=== PATIENT | male | born 1985 | race Caucasian/White ===

== ENCOUNTER → 2016-04-05 | Outpatient (CLI) | payer BC, OTHER ==
[~2016-04-05] MED LIST: CMD6; LANS15CA24 OR; LVNIS150 SQ; MEDLIST; PARO1TAB27 PO; PARO30TA3 PO; RANI150T3 PO; WARF10TA4 PO; WARF6TAB5 PO
== END | disposition home or self-care (01) ==
LOC: C.RDSM 12:00
PROVIDERS: ATTEND Orthopaedic Surgery Sports Medicine
DX: M25.522 Pain in left elbow (principal)

== ENCOUNTER 2016-10-02 10:34 | Emergency (ER) | payer BC ==
[~2016-10-02] VITALS: Ht 177.8 cm; Wt 107.5 kg
[~2016-10-02 10:34] MED LIST changes: -CMD6; -LVNIS150 SQ; -PARO1TAB27 PO; -PARO30TA3 PO; -RANI150T3 PO; -WARF10TA4 PO; -WARF6TAB5 PO
[2016-10-02 10:41] VITALS: TEMP 36.6; Ht 177.8 cm; Wt 107.5 kg
[2016-10-02] MEDS ORDERED: WARF10TA4 PO (10:59)
[2016-10-02] MEDS ORDERED: CMD6 (10:59)
[2016-10-02] MEDS ORDERED: PARO1TAB27 PO (10:59)
[2016-10-02] MEDS ORDERED: RANI150T3 PO (10:59)
[2016-10-02 11:09] VITALS: O2SAT 98
[2016-10-02] MEDS ORDERED: SODIUM CHLORIDE 0.9% 1000ML 1,000 ML IV STA (11:24)
--- NOTE | 2016-10-02 11:34 | EMERGENCY ROOM VISIT NOTE ---
History First contact with patient: 11:05 Chief Complaint: SHORTNESS OF BREATH Stated Complaint: SOB, CHEST PAIN Nursing Triage Summary: Pt c/o SOB that began approx 0800 and around 0900 got left lower chest pain. "I got this hot flushy feeling". Pt states pain is just discomfort at rest, increases to 7/10 with inhalation. History of Present Illness The patient is a 31 year old male who presents to the Emergency Room with complaints of shortness of breath and left-sided chest pain that started abruptly this morning around 8 AM. He describes the shortness of breath as "feeling like I can't catch my breath," and states the chest pain is sharp, worse with taking a deep breath, 7/10. He states this feels similar to previous times when he has had a PE. He has not taken anything for the pain. Patient was seen by his PCP today, who sent him to the ED for further evaluation. 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 He states his last PE was in 2012. He denies fevers or chills, dizziness, syncope, headache, nausea or vomiting, hemoptysis, abdominal pain, changes in stool, urinary complaints, or rash. Review of Systems A complete 10 point review of systems was reviewed with the patient with pertinent positives and negatives as per history of present illness. All else were negative. Social History Smoking Status: Former Smoker Current/Historical Medications Scheduled Enoxaparin (Lovenox), 150 MG SQ joleen Ranitidine Hcl (Zantac), 1 TAB PO BID Warfarin Sod (Jantoven), 9 MG PO 3XWK Miscellaneous Medications Paroxetine (Paxil), 30 MG PO Warfarin Sod (Coumadin) Physical Exam Vital Signs Date Time Temp Pulse Resp B/P (MAP) Pulse Ox O2 Delivery O2 Flow Rate FiO2 10/02/16 16:04 61 18 117/70 97 10/02/16 15:01 66 16 126/73 99 Room Air 10/02/16 13:34 64 10/02/16 13:33 63 12 124/75 98 Room Air 10/02/16 11:51 66 16 148/94 95 Room Air 10/02/16 11:12 66 10/02/16 11:09 98 Room Air 10/02/16 10:41 98 Room Air 10/02/16 10:41 36.6 57 16 127/82 97 Room Air Physical Exam CONSTITUTIONAL: No acute distress. Well appearing and well nourished. Alert and oriented X 4 with normal affect. HEENT: Normocephalic, atraumatic. Pupils equal, round and reactive to light, EOMI. TMs normal. Pharynx normal. Moist mucous membranes NECK: Supple, full active range of motion without discomfort. RESPIRATORY: Clear to auscultation bilaterally with no wheezing, crackles, rhonchi or stridor. Equal expansion bilaterally. CARDIOVASCULAR: Regular rate and rhythm with no murmurs, rubs or gallops. Normal peripheral perfusion. No edema. CHEST WALL: There is no tenderness to palpation of the chest wall. No ecchymosis or abrasions. No crepitus. GASTROINTESTINAL: Soft, nontender, nondistended. Bowel sounds present in all quadrants. MUSCULOSKELETAL: Full range of motion of all joints without discomfort. Mild tenderness in the right posterior calf. No swelling or erythema noted. INTEGUMENTARY: No rash or other significant dermatologic conditions noted. NEUROLOGIC: Cranial nerves II-XII grossly intact. No focal neurologic deficits noted. Medical Decision & Procedures ER Provider Diagnostic Interpretation: CT ANGIOGRAM OF THE CHEST CLINICAL HISTORY: Dyspnea. COMPARISON STUDY: Chest x-ray and chest CT dated 05/31/2009. TECHNIQUE: Following the IV administration of 93 cc of Optiray 320, CT angiogram of the chest was performed from the upper abdomen to the thoracic inlet utilizing the pulmonary embolus protocol. Images are reviewed in the axial, sagittal, and coronal planes. 3-D MIPS images are created and assessed. IV contrast was administered without complication. A dose lowering technique was utilized adhering to the principles of ALARA. CT DOSE: 669.38 mGy.cm FINDINGS: Thyroid: Imaged portions of the thyroid gland are normal in size and attenuation. Thoracic aorta: The thoracic aorta is normal in caliber and demonstrates standard 3-vessel arch anatomy. No dissection is seen. Pulmonary vasculature: The pulmonary trunk is normal in caliber. There are no filling defects identified in main, lobar, or segmental pulmonary branches to suggest pulmonary embolus. Heart: The heart is top normal in size and without pericardial effusion. Lungs and pleural spaces: The lungs and pleural spaces are clear. Mediastinum: There is no mediastinal lymphadenopathy. Eulalia: Clear. Axillae: There is no axillary lymphadenopathy. Upper abdomen: There is a small hiatal hernia. Partially visualized upper abdominal viscera is otherwise within normal limits. Skeletal structures: No lytic or blastic bony lesions are seen. IMPRESSION: 1. There is no evidence of pulmonary embolus in the main, lobar, or segmental pulmonary arteries. 2. The lungs are clear. ----- RIGHT LOWER EXTREMITY VENOUS DOPPLER CLINICAL HISTORY: Right calf pain. History of pulmonary embolus. COMPARISON STUDY: No previous studies for comparison. TECHNIQUE: Sonography of the deep venous system of the right lower extremity was performed. Compression and augmentation were evaluated. FINDINGS: The right common femoral, superficial femoral and popliteal veins were compressible. Augmentation was normal. Flow was shown within the deep calf vessels. IMPRESSION: No evidence of deep venous thrombus within the right lower extremity. Laboratory Results 10/02/16 11:00 Red Blood Count 4.96, Mean Corpuscular Volume 85.1, Mean Corpuscular Hemoglobin 30.2, Mean Corpuscular Hemoglobin Concent 35.5, Mean Platelet Volume 10.2, Neutrophils (%) (Auto) 49.1, Lymphocytes (%) (Auto) 38.7, Monocytes (%) (Auto) 7.8, Eosinophils (%) (Auto) 3.8, Basophils (%) (Auto) 0.3, Neutrophils # (Auto) 3.09, Lymphocytes # (Auto) 2.44, Monocytes # (Auto) 0.49, Eosinophils # (Auto) 0.24, Basophils # (Auto) 0.02 10/02/16 11:00 Test 10/02/16 11:00 White Blood Count 6.30 K/uL (4.8-10.8) Red Blood Count 4.96 M/uL (4.7-6.1) Hemoglobin 15.0 g/dL (14.0-18.0) Hematocrit 42.2 % (42-52) Mean Corpuscular Volume 85.1 fL (80-100) Mean Corpuscular Hemoglobin 30.2 pg (25-34) Mean Corpuscular Hemoglobin Concent 35.5 g/dl (32-36) Platelet Count 248 K/uL (130-400) Mean Platelet Volume 10.2 fL (7.4-10.4) Neutrophils (%) (Auto) 49.1 % Lymphocytes (%) (Auto) 38.7 % Monocytes (%) (Auto) 7.8 % Eosinophils (%) (Auto) 3.8 % Basophils (%) (Auto) 0.3 % Neutrophils # (Auto) 3.09 K/uL (1.4-6.5) Lymphocytes # (Auto) 2.44 K/uL (1.2-3.4) Monocytes # (Auto) 0.49 K/uL (0.11-0.59) Eosinophils # (Auto) 0.24 K/uL (0-0.5) Basophils # (Auto) 0.02 K/uL (0-0.2) RDW Standard Deviation 38.5 fL (36.4-46.3) RDW Coefficient of Variation 12.5 % (11.5-14.5) Immature Granulocyte % (Auto) 0.3 % Immature Granulocyte # (Auto) 0.02 K/uL (0.00-0.02) Prothrombin Time 15.4 SECONDS (9.0-12.0) Prothromb Time International Ratio 1.4 (0.9-1.1) Activated Partial Thromboplast Time 30.1 SECONDS (21.0-31.0) Partial Thromboplastin Ratio 1.2 Anion Gap 7.0 mmol/L (3-11) Est Creatinine Clear Calc Drug Dose 134.0 ml/min Estimated GFR () 118.0 Estimated GFR (Non- 101.8 BUN/Creatinine Ratio 15.1 (10-20) Calcium Level 8.8 mg/dl (8.5-10.1) Total Bilirubin 0.9 mg/dl (0.2-1) Aspartate Amino Transf (AST/SGOT) 17 U/L (15-37) Alanine Aminotransferase (ALT/SGPT) 29 U/L (12-78) Alkaline Phosphatase 80 U/L (45-117) Total Protein 7.9 gm/dl (6.4-8.2) Albumin 4.0 gm/dl (3.4-5.0) Globulin 3.9 gm/dl (2.5-4.0) Albumin/Globulin Ratio 1.0 (0.9-2) Medications Administered Medications (Trade) Dose Ordered Sig/Robert Route Start Time Stop Time Status Last Admin Dose Admin Sodium Chloride 1,000 ml @ 999 mls/hr Q1H1M STAT IV 10/02/16 11:24 10/02/16 12:24 DC 10/02/16 11:32 999 MLS/HR Warfarin Sodium (Coumadin Tab) 12 mg NOW ONCE PO 10/02/16 14:45 10/02/16 14:46 DC 10/02/16 14:45 12 MG Enoxaparin Sodium (Lovenox Inj) 150 mg NOW ONCE SQ 10/02/16 14:45 10/02/16 14:46 DC 10/02/16 14:58 150 MG ECG Indication: chest pain, SOB/dyspnea Rate (beats per minute): 58 Rhythm: sinus bradycardia Findings: no acute ischemic change, no ectopy Medical Decision CC: Patient presenting with complaint of shortness of breath with left-sided chest pain Interpretation of Labs: No leukocytosis, no anemia, no significant joint abnormalities, normal renal function, normal liver enzymes. Subtherapeutic INR. Differential Diagnosis: Includes, but not limited to PE, DVT, pleurisy, pericarditis, pneumonia, costochondritis, musculoskeletal pain, among others. Medication Reconciliation: I attest that I have personally reviewed the patient' s current medication list. Vital signs review: I reviewed the patient's vital signs and interpret them as follows: T: Afebrile; BP: Normotensive; HR: Bradycardic; RR: Within normal limits; Pulse Ox: Within normal limits on room air. Blood pressure screening: The patient was found to have normal blood pressure on screening and does not require follow-up for repeat blood pressure check. Summary: Patient was evaluated at bedside, history of physical exam performed. Patient is alert, in no acute distress, resting comfortably in the stretcher. Patient's lungs are clear and heart sounds are normal. Patient's left-sided chest pain is not reproducible with palpation. He does describe pleuritic type chest pain concerning for possible PE, especially given his history of this. Orders were placed at bedside for labs, IV fluids for hydration, venous duplex of the right lower extremity to rule out DVT, CT of the chest to evaluate for PE. Patient discussed with Dr. Ramirez, who agrees with my assessment and plan. Labs reviewed as above, INR is subtherapeutic at 1.4, labs are otherwise unremarkable. Imaging reviewed, no evidence of PE or DVT on studies today. In setting of subtherapeutic INR with a clotting disorder and history of previous PEs, I am inclined to treat this patient with Lovenox for bridge therapy until a therapeutic INR is reached. Dosing regimen was discussed with Selene, Pharm-D. Patient was given his first dose of Lovenox in the ED. Patient reassessed multiple times throughout ED stay, he remained stable with no new complaints. He was offered pain medication multiple times which she declined. The patient was updated on all results and plan for treatment with Lovenox, and his need for very close follow-up. He was also given return precautions should his symptoms worsen in any way, he verbalized understanding. Patient was discharged home in stable condition and ambulatory. Impression Primary Impression: Shortness of breath Additional Impressions: Subtherapeutic anticoagulation Left sided chest pain Departure Information Dispostion Home / Self-Care Condition GOOD Prescriptions Enoxaparin (LOVENOX) 150 Mg/1 Ml Inj 150 MG SQ joleen for 5 Days, #5 SYR Prov: Arlene Sanchez CRNP 10/02/16 Referrals Yunier Hidalgo MD (PCP) Patient Instructions Coumadin, Enoxaparin injection, My [facility] Additional Instructions You have been given a loading dose of 12 mg of Coumadin today as well as an injection of Lovenox 150 mg. This is because your INR is subtherapeutic at 1.4 You are to continue taking your Coumadin as prescribed. DO NOT take your dose today. You should start taking your Coumadin as prescribed tomorrow. You also be taking a Lovenox injection once a day for the next 5 days to help thin your blood until your Coumadin is back to a therapeutic level. You should follow-up with Dr. Hidalgo in the next few days and have your INR rechecked. Please return to the emergency department for any worsening symptoms, including severe shortness of breath, worsening chest pain, severe dizziness or passing out, coughing up blood, if he develops fevers or chills, or any other concerns. Problem Qualifiers
[2016-10-02 11:36] LABS: BASO % 0.3 %; BASO ABS # 0.02 K/uL (0-0.2); COMPLETE YES; EOS % 3.8 %; HEMATOCRIT 42.2 % (42-52); IG% 0.3 %; LYMPH % 38.7 %; LYMPH ABS # 2.44 K/uL (1.2-3.4); MEAN CELL VOLUME 85.1 fL (80-100); MEAN CORPUSCULAR HEMOGLOBIN 30.2 pg (25-34); MEAN CORPUSCULAR HGB CONC 35.5 g/dl (32-36); MEAN PLATELET VOLUME 10.2 fL (7.4-10.4); MONO % 7.8 %; NEUT % 49.1 %; PLATELET COUNT 248 K/uL (130-400); RED BLOOD COUNT 4.96 M/uL (4.7-6.1)
[2016-10-02 11:43] LABS: BUN/CREATININE RATIO 15.1 (10-20); CALCIUM 8.8 mg/dl (8.5-10.1); CREATININE 0.99 mg/dl (0.60-1.40); POTASSIUM 3.8 mmol/L (3.5-5.1)
[2016-10-02] MEDS ORDERED: OPTIRAY 320 IV PRN (11:45)
[2016-10-02 11:52] LABS: INR 1.4 (0.9-1.1); PARTIAL THROMBOPLASTIN RATIO 1.2; PROTHROMBIN TIME (PATIENT) 15.4 SECONDS (9.0-12.0)
--- NOTE | 2016-10-02 13:01 | DIAGNOSTIC IMAGING REPORT ---
CT ANGIOGRAM OF THE CHEST CLINICAL HISTORY: Dyspnea. COMPARISON STUDY: Chest x-ray and chest CT dated 05/31/2009. TECHNIQUE: Following the IV administration of 93 cc of Optiray 320, CT angiogram of the chest was performed from the upper abdomen to the thoracic inlet utilizing the pulmonary embolus protocol. Images are reviewed in the axial, sagittal, and coronal planes. 3-D MIPS images are created and assessed. IV contrast was administered without complication. A dose lowering technique was utilized adhering to the principles of ALARA. CT DOSE: 669.38 mGy.cm FINDINGS: Thyroid: Imaged portions of the thyroid gland are normal in size and attenuation. Thoracic aorta: The thoracic aorta is normal in caliber and demonstrates standard 3-vessel arch anatomy. No dissection is seen. Pulmonary vasculature: The pulmonary trunk is normal in caliber. There are no filling defects identified in main, lobar, or segmental pulmonary branches to suggest pulmonary embolus. Heart: The heart is top normal in size and without pericardial effusion. Lungs and pleural spaces: The lungs and pleural spaces are clear. Mediastinum: There is no mediastinal lymphadenopathy. Eulalia: Clear. Axillae: There is no axillary lymphadenopathy. Upper abdomen: There is a small hiatal hernia. Partially visualized upper abdominal viscera is otherwise within normal limits. Skeletal structures: No lytic or blastic bony lesions are seen. IMPRESSION: 1. There is no evidence of pulmonary embolus in the main, lobar, or segmental pulmonary arteries. 2. The lungs are clear. Electronically signed by: Quique Prescott M.D. 10/02/2016 1:00 PM Dictated Date/Time: 10/02/2016 12:50 PM
--- NOTE | 2016-10-02 13:20 | DIAGNOSTIC IMAGING REPORT ---
RIGHT LOWER EXTREMITY VENOUS DOPPLER CLINICAL HISTORY: Right calf pain. History of pulmonary embolus. COMPARISON STUDY: No previous studies for comparison. TECHNIQUE: Sonography of the deep venous system of the right lower extremity was performed. Compression and augmentation were evaluated. FINDINGS: The right common femoral, superficial femoral and popliteal veins were compressible. Augmentation was normal. Flow was shown within the deep calf vessels. IMPRESSION: No evidence of deep venous thrombus within the right lower extremity. Electronically signed by: Arias Phipps M.D. 10/02/2016 1:19 PM Dictated Date/Time: 10/02/2016 1:18 PM
[2016-10-02] MEDS ORDERED: WARFARIN SOD 6 MG TAB PO SCH (14:15)
[2016-10-02] MEDS ORDERED: ENOXAPARIN 150 MG/1ML SYR SQ ONE (14:45)
[2016-10-02] MEDS ORDERED: WARFARIN SOD 5 MG TAB PO ONE (14:45)
[2016-10-02] MEDS ORDERED: LVNIS150 SQ (14:55)
[2016-10-02 16:04] VITALS: BP 117/70; PULSE 61; O2SAT 97
[2016-10-12] MEDS ORDERED: PARO30TA3 PO (07:47)
[2016-10-12] MEDS ORDERED: WARF6TAB5 PO (07:47)
== END 2016-10-02 16:05 | disposition home or self-care (01) ==
LOC: C.EDB 10:35 → C.EDC 16:05
DX: R06.02 Shortness of breath (principal); R79.1 Abnormal coagulation profile; R07.9 Chest pain, unspecified; Z87.891 Personal history of nicotine dependence; Z79.01 Long term (current) use of anticoagulants

== ENCOUNTER → 2016-10-28 | Outpatient (CLI) | payer BC ==
[~2016-10-28] MED LIST changes: -LANS15CA24 OR; -MEDLIST; +PARO30TA3 PO; +WARF6TAB5 PO
[2016-10-28 09:13] LABS: INR 1.8 (0.9-1.1); PROTHROMBIN TIME (PATIENT) 20.3 SECONDS (9.0-12.0)
== END | disposition home or self-care (01) ==
LOC: C.LAB 08:04
PROVIDERS: ATTEND Family Medicine
DX: D68.61 Antiphospholipid syndrome (principal)

== ENCOUNTER → 2016-11-03 | Day surgery (SDC) | payer BC ==
[2016-10-12 07:47] VITALS: Ht 177.8 cm; Wt 104.5 kg
[~2016-11-03] VITALS: Ht 177.8 cm; Wt 104.5 kg
[~2016-11-03] MED LIST changes: +BUPIVACAINE/EPINEPHRINE 0.5% MPF 1:200,000 30 ML VIAL ONE; +CEFAZOLIN 2000 MG/60 ML D5W IV SCH; +DEXAMETHASONE SOD INJ 4 MG/ML VIAL ONE; +FENTANYL CITRATE INJ 50 MCG/1 ML 2 ML VIAL ONE; +LACTATED RINGER'S 1000ML 1,000 ML IV SCH; +LIDOCAINE HCL 1% 20 ML VIAL ONE; +LIDOCAINE HCL 2% 2 ML VIAL (20MG/ML) ONE; +MIDAZOLAM HCL 1 MG/ML 2ML VIAL ONE; +MoRPHine SULFATE 2 MG/ML CARP IV PRN; +MoRPHine SULFATE 4 MG/ML 1 ML CARP\\VIAL IV PRN; +ONDANSETRON INJ 2 MG/ML 2 ML VIAL IV PRN; +ONDANSETRON INJ 2 MG/ML 2 ML VIAL ONE; +OXYCODONE/ACETAMINOPHEN 5-325 TAB ONE; +OXYCODONE/ACETAMINOPHEN 5-325 TAB PO PRN; +PROPOFOL IV EMULSION 10 MG/ML 20 ML VIAL IV ONE
--- NOTE | 2016-11-03 07:37 | History & Physical Bridge - SC ---
H&P Re-Evaluation Bridge Note: I have examined the patient, reviewed the History & Physical and in the interval since the performance of the History & Physical I have noted the following changes of clinical significance: No changes noted
--- NOTE | 2016-11-03 10:13 | Discharge Instructions-SurgCtr ---
Discharge Instructions Date of Service Nov 03, 2016. Visit Reason for Visit: Left Arm Subluxing Nerve Discharge Discharge Diagnosis / Problem: S/P Left Ulnar nerve transposition Discharge Goals Goal(s): Decrease discomfort, Improve function, Increase independence Medications Stopped Medications Name(s): Has been off Coumadin x 6 days - started on Lovenox. Activity Recommendations Activity Limitations: per Instructions/Follow-up section Lifting Limitations: until after follow-up appointment (No more than cup of coffee) May Resume Sexual Activity: when tolerated Shower/Bathe: may shower/bathe in 3 days Driving or Machine Use: Not while on Narcotics Anesthesia . Post Anesthesia Instructions: If you have had General Anesthesia or IV Sedation: * Do not drive today. * Resume driving when surgeon permits. * Do not make important decisions or sign legal documents today. * Call surgeon for: 1. Temperature elevations greater than 101 degrees F. 2. Uncontrollable pain. 3. Excessive bleeding. 4. Persistent nausea and vomiting. 5. Medication intolerance (nausea, vomiting or rash). * For nausea and vomiting use only clear liquids such as: tea, soda, bouillon until nausea subsides, then gradually increase diet as tolerated. * If you have any concerns or questions, call your surgeon's office. If physician is unavailable and it is an emergency, call 911 or go to the nearest emergency room. . Instructions / Follow-Up Instructions / Follow-Up Dr. Preston in 10-15 days. PT in 3 days. Diet Recommendations Home Diet: resume previous diet Procedures Procedures Performed: Left Ulnar Nerve Open Transposition Pending Studies Studies pending at discharge: no Work Instructions Return To Work: 1 week Medical Emergencies . Who to Call and When: Medical Emergencies: If at any time you feel your situation is an emergency, please call 911 immediately. . Non-Emergent Contact Non-Emergency issues call your: Surgeon Call Non-Emergent contact if: temperature is above 101.5, your pain is not controlled, wound has increased drainage, wound has increased redness . . "Provider Documentation" section prepared by Rudy Preston. .
--- NOTE | 2016-11-03 10:17 | [facility] Operative Report ---
Operative Report Operative Date Nov 03, 2016. Pre-Operative Diagnosis Left Elbow Subluxing Nerve Post-Operative Diagnosis Same Procedure(s) Performed Left Ulnar Nerve Open Transposition Surgeon Dr. Preston Ibm Bpm Architect Surgeon(s) Dia Cotto, Fellow Dia Shankar PA-C Estimated Blood Loss 12ML Findings Subluxation Left Ulnar Nerve, Compression Rodgers Fascia. Fluids (cc crystalloids) 1000 Specimens None Drains n/a Anesthesia LMA Complication(s) None Disposition Recovery Room / PACU (Stable) Implants N/A Indications The patient is a 31 year old male with long standing left ulnar nerve symptoms that has failed conservative treatment. The patient understands the risks of surgery, which include but are not limited to: bleeding, infection, re-operation , damage to nerves and arteries, continued pain and DVT. The patient understands all of these instructions and explanations, all of their questions have been satisfactorily addressed. The patient has elected to proceed with surgery and the informed consent was signed. Description of Procedure The patient was taken to the Operating Room and placed in the supine position on the operating table. After general anesthetic was administered a multidisciplinary time-out was performed identifying my initials on the left upper limb as the correct and operative limb. Prior to the incision being made , 2 grams of intravenous Ancef were given. The left arm was prepped and draped in the standard orthopaedic sterile fashion. The planned 15 cm incision and the patients medial epicondyle were marked. The incision was injected with a 50:50 mixture of 1% Lidocaine plain and 0.5% Marcaine for a total of 15 cc. The medial antebrachial cutaneous nerve was protected throughout. The incision was carried down to the fascia. The ulnar nerve was palpated in the cubital tunnel, it was initially exposed proximally and carefully dissected, releasing the arcade of [place]. It was further released distally through the cubital tunnel and Hinkle's fascia was freed distally , preserving any branches off the ulnar nerve. There was significant scarring near Hinkle's fascia. A small portion of the intermuscular septum was excised. The elbow was gently ranged and the ulnar nerve was noted to subluxate over the medial epicondyles. The Ulnar nerve was then sufficiently freed to allow anterior transposition and a draw bridge type flap was created and the flaps were closed over the transposed nerve with 2-0 Vicryl. There was no tension on the nerve with full range of motion of the elbow. The wound was copiously irrigated. The cubital tunnel was closed with 2-0 Vicryl. The subcutaneous layer was closed with 3-0 Vicryl. The skin was closed with 4-0 Monocryl in a running subcuticular fashion and Dermabound. Once the Dermabond had dried the incision was covered with Steri strips, 4x4's, ABD, sterile cast padding, and an RICH. A sling was placed for comfort. The sponge and needle counts were correct. POST-OP INSTRUCTIONS: Pain medicine prescription was given pre-operatively to be taken as needed. Sling for comfort. No heavy lifting. The patient will follow up with me in 10- 15 days. He will restart his Coumadin tonight and continue with the Lovenox bridging until he has become therapeutic on his Coumadin. I attest to the content of the Intraoperative Record and any orders documented therein. Any exceptions are noted below.
--- NOTE | 2016-11-03 11:01 | [facility] Operative Report ---
Operative Report Operative Date Nov 03, 2016. Pre-Operative Diagnosis Left Elbow Subluxing Nerve Post-Operative Diagnosis Same Procedure(s) Performed Left Ulnar Nerve Open Transposition Surgeon Dr. Preston Shrimp Peeling Machine Tender Surgeon(s) Dia Cotto, Fellow Dia Shankar PA-C Estimated Blood Loss 12ML Findings same Fluids (cc crystalloids) 1000 Specimens None Drains none Anesthesia general Complication(s) None Disposition Recovery Room / PACU Implants none Indications continued left upper extremity pain/numbness. EMG obtained, surgery recommended , consents obtained by Dr. Preston. Description of Procedure taken to the OR, prepped and draped, I was present the entire case, please see Dr. Preston's op note for further detail I attest to the content of the Intraoperative Record and any orders documented therein. Any exceptions are noted below.
[2016-11-03 11:35] VITALS: TEMP 36.5
[2016-11-03 11:57] VITALS: BP 143/78; PULSE 71; O2SAT 95
--- NOTE | 2016-11-03 12:08 | Anesthesia Progress Nt - [facility] ---
Anesthesia Post Op Note Date & Time Nov 03, 2016 at 12:07 Vital Signs Pain Intensity: 4 Vital Signs Past 12 Hours Date Time Temp Pulse Resp B/P (MAP) Pulse Ox O2 Delivery O2 Flow Rate FiO2 11/03/16 11:57 71 16 143/78 (99) 95 Room Air 11/03/16 11:35 36.5 84 16 153/82 (105) 95 Room Air 11/03/16 11:28 81 13 96 11/03/16 11:28 80 13 11/03/16 11:26 36.8 96 Room Air 11/03/16 11:26 131/87 11/03/16 11:23 97 Room Air 11/03/16 11:23 93 17 97 11/03/16 11:23 94 17 11/03/16 11:22 100 14 11/03/16 11:22 99 14 97 11/03/16 11:21 140/84 11/03/16 11:17 81 14 100 11/03/16 11:17 81 14 11/03/16 11:16 124/78 11/03/16 11:12 76 14 100 11/03/16 11:12 76 14 11/03/16 11:11 79 11 120/76 100 11/03/16 11:11 80 11 11/03/16 11:06 79 15 11/03/16 11:06 81 15 125/83 100 11/03/16 11:01 78 16 11/03/16 11:01 77 16 127/83 99 11/03/16 10:57 127/82 11/03/16 10:56 36.6 88 16 127/82 98 Mask 8 11/03/16 07:28 36.8 61 16 146/99 (115) 97 Room Air Notes Mental Status: alert / awake / arousable, participated in evaluation Pt Amnestic to Procedure: Yes Nausea / Vomiting: adequately controlled Pain: adequately controlled Airway Patency, RR, SpO2: stable & adequate BP & HR: stable & adequate Hydration State: stable & adequate Anesthetic Complications: no major complications apparent
== END | disposition home or self-care (01) ==
LOC: X.SURG 06:58
PROVIDERS: ATTEND Orthopaedic Surgery Sports Medicine
DX: G56.22 Lesion of ulnar nerve, left upper limb (principal); Z86.711 Personal history of pulmonary embolism; F31.9 Bipolar disorder, unspecified; K21.9 Gastro-esophageal reflux disease without esophagitis; E66.9 Obesity, unspecified; Z79.01 Long term (current) use of anticoagulants; G47.33 Obstructive sleep apnea (adult) (pediatric)

== ENCOUNTER 2018-12-18 06:20 | Observation (INO) ==
--- OUTSIDE RECORDS SUMMARY | 2018-12-18 06:23 | External Medical Summary | Continuity of Care Document ---
:1985 Author Name Kimberlyn Smith, Provider Address Unavailable Unavailable , Care Team Providers Name Role Phone Unavailable Unavailable Unavailable Domonique Carrillo PA-C Unavailable [email or web address] [email or web address], [email or web address] Unavailable Unavailable Unavailable Unavailable Unavailable Problems Anxiety disorder (300.00) (F41.9) Pulmonary embolism (415.19) (I26.99) Allergies and Adverse Reactions No Known Allergies (Allergy) Medications Warfarin Sodium 6 MG Oral Tablet; TAKE 1 TABLET DAILY DIRECTED. DB Carrillo Start: 20-Feb-2017 Quantity: 30 Refills: 1 PARoxetine HCl - 20 MG Oral Tablet; TAKE 1 TABLET JASMEET Y DIRECTED. DB Carrillo Start: 20-Feb-2017 Quantity: 30 Refills: 0 Zantac 150 MG TABS; TAKE 1 TABLET DAILYSarah Nance Start: 20-Feb-2017 Refills: 0 Azithromycin 500 MG Oral Tablet; TAKE 1 TABLET DAILY. DB Olivera Start: 20-Feb-2017 Quantity: 7 Refills: 0 Procedures Procedures not documented Immunizations Immunizations not documented Plan of Treatment Planned Observations Planned Goals not documented Results No Known Results Results not documented Encounters Appointment; Salina Mark CRNP 06-Dec-2017 11:00 Encounter Diagnosis: Problem not documented Appointment; Domonique Carrillo PA-C 21-May-2017 16:00 Encounter Diagnosis: Problem not documented Appointment; Domonique Carrillo PA-C 20-Feb-2017 15:00 Encounter Diagnosis: Problem not documented
[2018-12-18 07:27] LABS: Basophils # (auto) 0.02 K/uL (0-0.2); Basophils % (auto) 0.3 %; Eosinophils # (auto) 0.27 K/uL (0-0.5); Eosinophils % (auto) 4.7 %; Hemoglobin 15.1 g/dL (14.0-18.0); Immature Granulocytes # (auto) 0.01 K/uL (0.00-0.02); Immature Granulocytes % (auto) 0.2 %; Lymphocytes # (auto) 2.63 K/uL (1.2-3.4); Lymphocytes % (auto) 45.7 %; Mean Corpuscular Hemoglobin 29.4 pg (25-34); Mean Corpuscular Hgb Conc 34.3 g/dL (32-36); Mean Corpuscular Volume 85.8 fL (80-100); Monocytes # (auto) 0.41 K/uL (0.11-0.59); Monocytes % (auto) 7.1 %; Neutrophils # (auto) 2.42 K/uL (1.4-6.5); Platelet Count 236 K/uL (130-400); RDW Coefficient of Variation 12.5 % (11.5-14.5); RDW Standard Deviation 39.2 fL (36.4-46.3); Red Blood Count 5.13 M/uL (4.7-6.1); White Blood Count 5.76 K/uL (4.8-10.8)
[2018-12-18 07:35] LABS: Albumin Level 3.8 gm/dl (3.4-5.0); BUN Creatinine Ratio 10.9 (10-20); Calcium 9.1 mg/dl (8.5-10.1); Creatinine Clr Calc Pharmacy 120.1 ml/min; Est GFR (African American) 108.3; Est GFR (Non-African American) 93.5; Potassium 3.8 mmol/L (3.5-5.1)
[2018-12-18] MEDS ORDERED: DiphenhydrAMINE HCL 50 MG/ML VIAL IV STA (07:35)
[2018-12-18] MEDS ORDERED: PROCHLORPERAZINE 2 ML IV ONE (07:35)
[2018-12-18] MEDS ORDERED: SODIUM CHLORIDE 0.9% 1000ML 2,000 ML IV ONE (07:35)
[2018-12-18] MEDS ORDERED: KETOROLAC TROMETHAMINE 15 MG/ML VIAL IV STA (07:35)
[2018-12-18] MEDS ORDERED: ACETAMINOPHEN 1,000 MG/100 ML VIAL IV STA (07:35)
[2018-12-18 07:38] LABS: Albumin Globulin Ratio 0.9 (0.9-2); Bilirubin,Total 0.6 mg/dl (0.2-1); Globulin 4.2 gm/dl (2.5-4.0)
[2018-12-18 07:55] LABS: INR 1.9 (0.9-1.1); Prothrombin Time 18.5 Seconds (9.0-12.0)
[2018-12-18] MEDS ORDERED: IOVERSOL 100ml IV PRN (07:57)
--- NOTE | 2018-12-18 08:16 | Emergency Department Note ---
Entered by Juani Galindo acting as a scribe for History of Present Illness General Chief complaint: Abdominal Pain Stated complaint: ABDOMINAL PAIN/NAUSEA/DIARRHEA Time Seen by Provider: 12/18/18 06:37 Source: patient History of Present Illness Onset (ago): hour(s) 4 Location: abdomen (right-sided) Pain Consistency: + intermittent Maximum Pain Intensity: 10 Quality: + other (cramps - abdominal pain ) Associated symptoms: + nausea/vomiting (+nausea;-vomiting ) and + other (+"gassy"; +loose bowel movement; -hematochezia ) The patient is a 33 year old male, with past medical history of a clotting disorder, who presents to the Emergency Room with complaints of intermittent right-sided abdominal pain that began approximately 4 hours ago. The patient states the abdominal pain woke him up at 0300 this morning. The patient desc ribes each episode of abdominal pain as cramps to the right side of his abdomen. The patient notes he had abdominal pain yesterday that went away with a bowel movement. The patient attributes yesterdays abdominal pain with being gassy. The patient notes his bowel movement was loose, but the patient denies blood in his stool. The patient reports he feels nauseous currently. The patient denies experiencing similar symptoms in the past. The family of the patient notes that Crohn's disease runs in the family. 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 Surgical History H/O wisdom tooth extraction History of decompression of ulnar nerve Family History Father Pulmonary embolism Crohn's disease Sister Pulmonary embolism Crohn's disease Social History Preferred Language: German Communication Ability: Effective Automobile Inspector Required: No Beliefs That Will Affect Care: None marital status: Current Living Situation: Spouse and Family current occupational status: employed 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 and A total of 10 systems reviewed and were otherwise negative Physical Exam Vital Signs Vital Signs - 24 hr 12/18/18 06:26 12/18/18 08:08 12/18/18 08:30 Temperature 36.7 C Temperature Source Oral Sepsis Recent Fever Within 48 Hours No Sepsis New/Unexplained Change in Mental Status No Sepsis Action Taken by Nursing No Action Required Pulse Rate 71 80 75 Pulse Rate from SpO2 Sensor 78 80 Respiratory Rate 18 15 12 Respiratory Effort / Characteristics Non-Labored Respiratory Depth Normal Blood Pressure 130/79 131/76 115/84 Blood Pressure Mean 96 94 94 Pulse Oximetry 96 99 100 Oxygen Delivery Method Room Air 12/18/18 09:00 12/18/18 09:30 12/18/18 10:00 Temperature Temperature Source Sepsis Recent Fever Within 48 Hours Sepsis New/Unexplained Change in Mental Status Sepsis Action Taken by Nursing Pulse Rate 77 68 73 Pulse Rate from SpO2 Sensor 74 69 71 Respiratory Rate 15 13 18 Respiratory Effort / Characteristics Respiratory Depth Blood Pressure 116/71 118/70 123/73 Blood Pressure Mean 86 86 89 Pulse Oximetry 97 98 99 Oxygen Delivery Method 12/18/18 10:30 Temperature Temperature Source Sepsis Recent Fever Within 48 Hours Sepsis New/Unexplained Change in Mental Status Sepsis Action Taken by Nursing Pulse Rate 74 Pulse Rate from SpO2 Sensor 71 Respiratory Rate 14 Respiratory Effort / Characteristics Respiratory Depth Blood Pressure 121/77 Blood Pressure Mean 91 Pulse Oximetry 98 Oxygen Delivery Method GENERAL: Awake, alert, uncomfortable-appearing, in no distress HENT: Normocephalic, atraumatic. Oropharynx with dry mucous membranes and otherwise unremarkable. EYES: Normal conjunctiva. Sclera non-icteric. NECK: Supple. No nuchal rigidity. FROM. No JVD. RESPIRATORY: CTAB. CARDIAC: Regular rate, normal rhythm. Extremities warm and well perfused. Pulses equal. ABDOMEN: Soft, non-distended. Mild, lower abdominal tenderness to palpation with increased right lower quadrant point tenderness. No rebound or guarding. No masses. RECTAL: Deferred. MUSCULOSKELETAL: Chest examination reveals no tenderness. The back is symmetrical on inspection without obvious abnormality. There is no CVA tenderness to palpation. No joint edema. LOWER EXTREMITIES: Calves are equal size bilaterally and non-tender. No edema. No discoloration. NEURO: Normal sensorium. No sensory or motor deficits noted. SKIN: No rash or jaundice noted. Course 0731: Past medical records reviewed. The patient was evaluated in room B6. A complete history and physical exam was performed. 0903: I discussed the patient's case with Dr. Blanco-General Eng. Dr. Blanco will further evaluate the patient. 0910: I discussed the patient's case with Dr. Blanco-General Eng. Dr. Blanco would like the patient to be admitted to a hospitalist. Dr. Blanco wants the hospitalist to give the patient FFP to get the patient's INR down to 1.5 0926: I reviewed the patient's case with Dr. Logan-Hospitalist [facility]. Dr. Logan will evaluate the patient for further management. Consultations Consultation #1: I discussed the patient's case with Dr. Blanco-General Eng. Dr. Blanco will further evaluate the patient. Time: 09:03 Consultation #2: I discussed the patient's case with Dr. Blanco-General Eng. Dr. Blanco would like the patient to be admitted to a hospitalist. Dr. Blanco wants the hospitalist to give the patient FFP to get the patient's INR down to 1.5 Time: 09:10 Consultation #3: I reviewed the patient's case with Dr. Logan-Hospitalist [facility]. Dr. Logan will evaluate the patient for further management. Time: 09:26 Administered Medications Escitalopram Oxalate (Lexapro Tab) 20 mg PO HS NAY Stop: 01/17/19 20:59 Last Admin: 12/18/18 21:25 Dose: 20 mg Documented by: [id number] Potassium Chloride/Dextrose/Sod Cl (D5nss + 20meq Kcl) 20 meq in 1,000 mls @ 150 mls/hr IV .Q6H40M NAY Stop: 01/17/19 12:29 Last Infusion: 12/18/18 18:14 Dose: 150 mls/hr Documented by: [id number] Infusion: 12/18/18 15:08 Dose: 0 mls/hr Documented by: [id number] Admin: 12/18/18 13:37 Dose: 150 mls/hr Documented by: [id number] Cefoxitin Sodium 1,000 mg/ (Dextrose) 60 mls @ 100 mls/hr IV Q6H NAY Stop: 12/20/18 21:59 Last Infusion: 12/18/18 22:01 Dose: 0 mls/hr Documented by: [id number] Admin: 12/18/18 21:25 Dose: 100 mls/hr Documented by: [id number] Warfarin Sodium (Coumadin) 9 mg PO HS [facility] Stop: 01/17/19 20:59 Last Admin: 12/18/18 21:24 Dose: 9 mg Documented by: [id number] Discontinued Medications Bacitracin (Bacitracin) Confirm Administered Dose 45 appln .ROUTE .STK-MED ONE Stop: 12/18/18 14:59 Last Admin: 12/18/18 16:48 Dose: 45 appln Documented by: [id number] Bupivacaine HCl (Marcaine 0.5% Mpf) Confirm Administered Dose 30 ml .ROUTE .STK- MED ONE Stop: 12/18/18 14:59 Last Admin: 12/18/18 16:48 Dose: 20 ml Documented by: [id number] Diphenhydramine HCl (Benadryl) 25 mg IV NOW STA Stop: 12/18/18 07:36 Last Admin: 12/18/18 07:45 Dose: 25 mg Documented by: [id number] Fentanyl Citrate (Fentanyl Citrate) 50 mcg IV Q5M PRN PRN Reason: PACU Use Only-Pain Stop: 12/18/18 20:59 Last Admin: 12/18/18 17:26 Dose: 50 mcg Documented by: [id number] Admin: 12/18/18 17:21 Dose: 50 mcg Documented by: [id number] Prochlorperazine (Compazine) 2 mls @ 1 mls/min IV ONE ONE Stop: 12/18/18 07:36 Last Admin: 12/18/18 07:46 Dose: 1 mls/min Documented by: [id number] Sodium Chloride (Nss 1000ml) 2,000 mls @ 999 mls/hr IV .Q2H1M ONE Stop: 12/18/18 09:35 Last Infusion: 12/18/18 09:15 Dose: 0 mls/hr Documented by: [id number] Admin: 12/18/18 07:45 Dose: 999 mls/hr Documented by: [id number] Acetaminophen (Ofirmev) 1,000 mg in 100 mls @ 400 mls/hr IV NOW STA Stop: 12/18/18 07:49 Last Infusion: 12/18/18 08:12 Dose: 0 mls/hr Documented by: [id number] Admin: 12/18/18 07:45 Dose: 400 mls/hr Documented by: [id number] Cefoxitin Sodium (Mefoxin) 2,000 mg in 60 mls @ 100 mls/hr IV NOW STA Stop: 12/18/18 09:40 Last Infusion: 12/18/18 09:52 Dose: 0 mls/hr Documented by: [id number] Admin: 12/18/18 09:15 Dose: 100 mls/hr Documented by: [id number] Phytonadione 10 mg/ Sodium (Chloride) 51 mls @ 102 mls/hr IV NOW STA Stop: 12/18/18 11:08 Last Infusion: 12/18/18 11:53 Dose: 0 mls/hr Documented by: [id number] Admin: 12/18/18 11:09 Dose: 102 mls/hr Documented by: [id number] Cefoxitin Sodium 2,000 mg/ (Dextrose) 60 mls @ 100 mls/hr IV Q6H [facility] Stop: 12/28/18 14:59 Last Infusion: 12/18/18 18:55 Dose: 0 mls/hr Documented by: [id number] Admin: 12/18/18 16:01 Dose: 100 mls/hr Documented by: [id number] Ioversol (Optiray 320 100ml) 94 ml IV ONCE PRN PRN Reason: Interaction Checking Stop: 12/22/18 07:56 Last Admin: 12/18/18 07:57 Dose: 94 ml Documented by: [id number] Ketorolac Tromethamine (Toradol) 15 mg IV NOW STA Stop: 12/18/18 07:36 Last Admin: 12/18/18 07:46 Dose: 15 mg Documented by: [id number] Lidocaine HCl (Xylocaine 1% (Local)) Confirm Administered Dose 20 ml .ROUTE .STK-MED ONE Stop: 12/18/18 14:59 Last Admin: 12/18/18 16:49 Dose: 20 ml Documented by: [id number] Ondansetron HCl (Zofran) 4 mg IV ONCE PRN PRN Reason: PACU Use Only-Nausea/Vomiting Stop: 12/18/18 20:59 Last Admin: 12/18/18 17:21 Dose: 4 mg Documented by: [id number] Medical Decision Making Differential Diagnosis Differential diagnosis: Etiologies such as appendicitis, diverticulitis, PUD, biliary pathology, UTI, pancreatitis, obstruction, mesenteric ischemia, aortic pathology, infections, inflammatory bowel disease, renal colic, as well as others were entertained. Medical Records Attestation: I reviewed the patient's medical records. Home Medications Current Medication List: was personally reviewed by me Laboratory Data Attestation: I reviewed the patient's lab results. Result diagrams: 12/18/18 06:31 12/18/18 06:31 Lab Results 12/18/18 12/18/18 12/18/18 Range/Units 06:31 06:31 06:31 WBC 5.76 (4.8-10.8) K/uL RBC 5.13 (4.7-6.1) M/uL Hgb 15.1 (14.0-18.0) g/dL Hct 44.0 (42-52) % MCV 85.8 (80-100) fL MCH 29.4 (25-34) pg MCHC 34.3 (32-36) g/dL RDW Std Deviation 39.2 (36.4-46.3) fL RDW Coeff of Brando 12.5 (11.5-14.5) % Plt Count 236 (130-400) K/uL MPV 10.0 (7.4-10.4) fL Immature Gran % (Auto) 0.2 % Neut % (Auto) 42.0 % Lymph % (Auto) 45.7 % [place] % (Auto) 7.1 % Eos % (Auto) 4.7 % Baso % (Auto) 0.3 % Immature Gran # (Auto) 0.01 (0.00-0.02) K/uL Neut # (Auto) 2.42 (1.4-6.5) K/uL Lymph # (Auto) 2.63 (1.2-3.4) K/uL [place] # (Auto) 0.41 (0.11-0.59) K/uL Eos # (Auto) 0.27 (0-0.5) K/uL Baso # (Auto) 0.02 (0-0.2) K/uL PT 18.5 H (9.0-12.0) Seconds INR 1.9 H (0.9-1.1) Sodium 139 (136-145) mmol/L Potassium 3.8 (3.5-5.1) mmol/L Chloride 106 (98-107) mmol/L Carbon Dioxide 27 (21-32) mmol/L Anion Gap 6.0 (3-11) BUN 11 (7-18) mg/dl Creatinine 1.05 (0.6-1.4) mg/dl Est Cr Clr Drug Dosing 120.1 ml/min Est GFR ( Amer) 108.3 Est GFR (Non-Af Amer) 93.5 BUN/Creatinine Ratio 10.9 (10-20) Glucose 89 (70-99) mg/dl Calcium 9.1 (8.5-10.1) mg/dl Total Bilirubin 0.6 (0.2-1) mg/dl AST 16 (15-37) U/L ALT 30 (12-78) U/L Alkaline Phosphatase 73 (45-117) U/L Total Protein 8.0 (6.4-8.2) gm/dl Albumin 3.8 (3.4-5.0) gm/dl Globulin 4.2 H (2.5-4.0) gm/dl Albumin/Globulin Ratio 0.9 (0.9-2) Lipase 104 (73-393) U/L Imaging Data Radiologist's Impression: Radiology results as stated below per my review and the radiologist's interpretation: CT abd pelvis IV con only CLINICAL HISTORY: RLQ pain nausea COMPARISON STUDY: None. TECHNIQUE: The patient was scanned in a dynamic helical fashion during intravenous administration of 94 cc of Optiray 320. A dose lowering technique was utilized adhering to the principles of ALARA. CT DOSE: 798.26 mGy.cm FINDINGS: Lower chest: There are mild dependent atelectatic changes. Liver: The contrast-enhanced liver is normal in size, contour, and attenuation. There is no intrahepatic biliary ductal dilatation. The hepatic veins and portal veins are patent. Gallbladder: Unremarkable. Spleen: Normal in size and attenuation. Pancreas: Unremarkable. Adrenal glands: Unremarkable. Kidneys: There is symmetric renal cortical enhancement. The kidneys are normal in size without hydronephrosis. Bowel: There are no transition zones to indicate bowel obstruction. There is no evidence of acute diverticulitis. There is mild appendiceal thickening 8 mm, but no evidence of significant periappendiceal inflammatory change. Careful clinical follow-up will be necessary as an early acute appendicitis cannot be excluded. Peritoneum: There is no intraperitoneal free air or abdominal ascites. There are small fat-containing umbilical hernia. Vasculature: The abdominal aorta is normal in course and caliber. Adenopathy: There are mildly prominent ileocolic lymph nodes, likely reactive. Pelvic viscera: The bladder, and pelvic viscera are unremarkable. Skeletal structures: No destructive osseous lesions are seen. IMPRESSION: 1. No evidence of bowel obstruction. No evidence of free air 2. Mildly prominent ileocolic lymph nodes likely reactive 3. Mild appendiceal thickening (8 mm), without evidence of significant periappendiceal inflammatory change. Given the history of right lower quadrant abdominal pain, close follow-up will be necessary as an early acute appendicitis cannot be excluded Electronically signed by: Volodymyr Arndt M.D. 12/18/2018 8:12 AM Blood Pressure Blood Pressure Findings: Normal blood pressure MDM Narrative The patient is a pleasant 33-year-old gentleman on Coumadin who presents emergency department with generalized abdominal cramping with development of right lower quadrant pain and nausea per hpi. On arrival patient is fatigued appearing but no acute distress, afebrile stable vital signs. On exam the patient has mild lower abdominal tenderness with increased tenderness in the right lower quadrant. There is no guarding or rebound. WBC, H/H, platelets wnl. Chemistry without acidosis. LFTs and electrolytes unremarkable. CT abd pelvis demonstrates "mild appendiceal thickening (8 mm), without evidence of significant periappendiceal inflammatory change". Patient was reexamined and he continued to have discrete right lower quadrant tenderness without peritoneal signs. Case was discussed with Dr. Blanco, general surgery, who recommends admission to medicine service for management of his INR with goal reduction of INR to 1.5 for surgery. Patient was updated and agreeable with plan for admission. Case was discussed with Dr. Logan, [facility] hospitalist, who will evaluate the patient for admission. Impression & Plan Acute appendicitis, On warfarin therapy, Hx pulmonary embolism Discharge Plan Visit Data *Final* Discharge Date/Time: 12/18/18 11:45 Chief Complaint: Abdominal Pain Stated Complaint: ABDOMINAL PAIN/NAUSEA/DIARRHEA ED Provider: Rui Khan Discharge Problem: Acute appendicitis, On warfarin therapy, Hx pulmonary embolism Patient Disposition: Admitted As Inpatient Discharge Instructions Interventions: ED Discharge Assessment Last Done: 12/18/18 11:45 The scribe's documentation has been prepared under my direction and personally reviewed by me in its entirety. I confirm that the note above accurately reflects all work, treatment, procedures, and medical decision making performed by me.
[2018-12-18] MEDS ORDERED: cefOXitin 2,000 MG/60 ML BAG IV STA ×2 (09:05→15:18)
--- NOTE | 2018-12-18 09:39 | History & Physical Report ---
Date of Service December 18, 2018 Assessment & Plan (1) Acute appendicitis: Clinical history and CT findings most suggestive of early acute appendicitis. Pt was seen by Dr Blanco from general surgery in the ER. He also feels that clinical picture is c/w early acute appendicitis and recommends laparoscopic appendectomy later today pending repeat INR. In meantime, keep NPO, IVF, pain control, anti-emetics, IV antibiotics (cefoxitin). See below re: coumadin and reversal of such. (2) Abnormal CT of the abdomen: Patient with pain in RUQ but gall bladder was wnl on CT. Patient's area of worst pain is the RLQ. CT with enlarged appendix but no inflammation surrounding such. Clinical picture, however, most c/w early acute appendicitis. See above in "acute appendicitis." Patient with family history of Crohn's disease but there are no radiographic findings of Crohn's on this gentleman's CT abd/pelvis. (3) History of pulmonary embolus (PE): 2013 - unprovoked. Hospitalized at [facility]. Coumadin initiated at that time, and patient given either a diagnosis of antiphospholipid antibody syndrome (vs antithrombin III deficiency). 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 To ensure safety during his laparoscopic appendectomy he was given vitamin K 10mg IV x 1 shortly after my ER assessment. His INR was then repeated about 4 hours post-vitamin K administration. Repeat INR was 1.6 (down from 1.9). Dr Blanco was aware of repeat INR of 1.6. Plan - INR in am. Will need lovenox bridge post-operatively to prevent perioperative VTE. Can likely use lovenox 40mg SC daily while awaiting for coumadin to attain goal range. Will defer to general surgery when lovenox and coumadin can be initiated post- op. (4) Clotting disorder: See discussion above in "h/o PE". (5) Anxiety disorder: Cont SSRI. (6) DVT prophylaxis: likely start SC lovenox tomorrow. see discussion above. chronic coumadin is managed by [facility]. patient to be placed on observation status. total time spent about 70 minutes (discussing case with general surgery, coumadin clinic spanish medical interpreter, coordination of care, trending INRs, etc). he is a high-risk patient given inherited thrombophilia. History of Present Illness Chief Complaint: abdominal pain Primary Care Provider: Steve Rodriguez 33yo male with history of PE in 2012 - thought to be 2nd to hereditary factors (antiphospholipid antibody syndrome vs antithrombin III deficiency) and on chronic coumadin - presents with severe abdominal pain beginning at 0300 this am. Woke him up from sleep. Pain is right-sided. Pain is intermittent, coming/going, and does radiate to the left abdomen occasionally. No fevers. Some cold chills. No vomiting but did have nausea with dry heaves. Last bowel movement was early this am (tiny) and also had "soft" bowel movement yesterday during the day. No sick contacts. Upon arrival to ER at [facility] he received IV pain meds with relief of pain. States that the pain is the worst in the RLQ. 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 Surgical History H/O wisdom tooth extraction History of decompression of ulnar nerve Family History Father Pulmonary embolism Crohn's disease Sister Pulmonary embolism Crohn's disease Social History Preferred Language: Bangladeshi Communication Ability: Effective Black Leather Trimmer Required: No Beliefs That Will Affect Care: None marital status: Current Living Situation: Spouse and Family current occupational status: employed 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[employer]) Other Information That Helps Us Care for You: No other: 5yo son Feels Safe at Home: Yes Safety Concerns: Feels Safe At This Time Smoking Status: Unknown if ever smoked Hx Alcohol Use: Yes Alcohol type: hard liquor Alcohol Intake Frequency: Holidays/Special Occasions Hx Substance Use: No Review of Systems Constitutional: + chills; no fever, no weight loss and no weight gain Eyes: + itchy eyes (recent corneal abrasion ) Ear, Nose, Mouth, Throat: no nasal congestion, no sore throat and no dysphagia Respiratory: no cough, no dyspnea and no dyspnea on exertion Cardiovascular: no chest pain, no orthopnea, no paroxysmal nocturnal dyspnea, no palpitations and no edema Gastrointestinal: + abdominal pain, + nausea and + vomiting; no blood in stools frequent stools, 2-3x's a day, usually after meals Genitourinary: no dysuria Musculoskeletal: no joint pain Integumentary: no rash Neurologic: no loss of sensation and no tingling Psychiatric: no anxiety Endocrine: no diabetes Hematologic / Lymphatic: + easy bruising Physical Exam Constitutional: well developed, well nourished and + acute distress (due to abd pain); no altered mental status Eyes: PERRL ENMT: external ear and nose normal, oropharynx normal Ears: no TM abnormality Neck: trachea midline, no thyromegaly Respiratory: normal respiratory effort, lungs clear to auscultation Cardiovascular: Rate/Rhythm: regular rate and regular rhythm Heart Sounds: normal S1 and normal S2; no murmur Vessels: posterior tibial pulses present and dorsalis pedis pulses present; no JVD Extremities: no edema Gastrointestinal (Abdomen): Inspection/Auscultation: normal bowel sounds; abdomen not distended Percussion/Palpation: + abdomen tender (RUQ and RLQ - worst over RLQ; no rebound) and abdomen soft; no guarding, abdomen not rigid, no hepatosplenomegaly, no hernia and no abdominal mass Musculoskeletal: no cyanosis or clubbing, extremities motor strength 5/5 Skin: no rashes, warm and dry Neurologic: deep tendon reflexes 2+ bilaterally and moves all extremities; no focal motor deficits Psychiatric: A+Ox3, euthymic affect Lymphatic: no cervical lymphadenopathy Results & Data Vital Signs (Past 12 Hours) Vital Signs Temp Pulse Resp BP Pulse Ox 12/18/18 09:00 77 15 116/71 97 12/18/18 08:30 75 12 115/84 100 11/06/19 08:08 80 15 131/76 99 12/18/18 06:26 36.7 C 71 18 130/79 96 Laboratory Results Laboratory Results - last 24 hr 12/18/18 12/18/18 12/18/18 06:31 06:31 06:31 WBC 5.76 RBC 5.13 Hgb 15.1 Hct 44.0 MCV 85.8 MCH 29.4 MCHC 34.3 RDW Std Deviation 39.2 RDW Coeff of Brando 12.5 Plt Count 236 MPV 10.0 Immature Gran % (Auto) 0.2 Neut % (Auto) 42.0 Lymph % (Auto) 45.7 [place] % (Auto) 7.1 Eos % (Auto) 4.7 Baso % (Auto) 0.3 Immature Gran # (Auto) 0.01 Neut # (Auto) 2.42 Lymph # (Auto) 2.63 [place] # (Auto) 0.41 Eos # (Auto) 0.27 Baso # (Auto) 0.02 PT 18.5 H INR 1.9 H Sodium 139 Potassium 3.8 Chloride 106 Carbon Dioxide 27 Anion Gap 6.0 BUN 11 Creatinine 1.05 Est Cr Clr Drug Dosing 120.1 Est GFR ( Amer) 108.3 Est GFR (Non-Af Amer) 93.5 BUN/Creatinine Ratio 10.9 Glucose 89 Calcium 9.1 Total Bilirubin 0.6 AST 16 ALT 30 Alkaline Phosphatase 73 Total Protein 8.0 Albumin 3.8 Globulin 4.2 H Albumin/Globulin Ratio 0.9 Lipase [address] abd/pelvis - IMPRESSION: 1. No evidence of bowel obstruction. No evidence of free air 2. Mildly prominent ileocolic lymph nodes likely reactive 3. Mild appendiceal thickening (8 mm), without evidence of significant periappendiceal inflammatory change. Given the history of right lower quadrant abdominal pain, close follow-up will be necessary as an early acute appendicitis cannot be excluded. Code Status & VTE Plan Code Status FULL code VTE Prophylaxis Plan VTE Prophylaxis will be ordered: Yes PG Care Time/CCT Total # of Minutes Spent Total Time Spent with Patient: Total time spent is greater than 50% in coordina tion of care (as documented) at patient's floor/unit and/or counseling patient: (1) Anxiety disorder Anxiety disorder type: generalized anxiety disorder Qualified Code(s): F41.1 - Generalized anxiety disorder (2) Acute appendicitis Acute appendicitis type: unspecified acute appendicitis type Qualified Code(s): K35.80 - Unspecified acute appendicitis
[2018-12-18] MEDS ORDERED: PHYTONADIONE 10 MG in SODIUM CHLORIDE 0.9% 50 ML IV STA (10:39)
--- NOTE | 2018-12-18 11:03 | Surgery Consultation ---
Date of Consultation December 18, 2018 Assessment & Plan (1) Acute abdominal pain: pt is a 33 year-old male who presents to Er with 7 hours acute abdominal pain, IMP: acute abdominal pain, possible early appendicitis, Plan, I agree with hospitalist will admit pt to hospital to working on lower INR, I recommend to do laparoscopic appendectomy, possible open D/W benefits, risks and alternatives of the surgery, the risks - infection, bleeding, abscess, blood clot, pt understood, he agrees with the surgery, I answered all questions, History of Present Illness History of Present Illness Chief complaint: Abdominal Pain Stated complaint: ABDOMINAL PAIN/NAUSEA/DIARRHEA Time Seen by Provider: 12/18/18 06:37 Source: patient History of Present Illness Onset (ago): hour(s) 4 Location: abdomen (right-sided) Pain Consistency: + intermittent Maximum Pain Intensity: 10 Quality: + other (cramps - abdominal pain ) Associated symptoms: + nausea/vomiting (+nausea;-vomiting ) and + other (+"gassy"; +loose bowel movement; -hematochezia ) The patient is a 33 year old male, with no significant past medical history, who presents to the Emergency Room with complaints of intermittent right-sided abdominal pain that began approximately 4 hours ago. The patient states the abdominal pain woke him up at 0300 this morning. The patient describes each episode of abdominal pain as cramps to the right side of his abdomen. The patient notes he had abdominal pain yesterday that went away with a bowel movement. The patient attributes yesterdays abdominal pain with being gassy. The patient notes his bowel movement was loose, but the patient denies blood in his stool. The patient reports he feels nauseous currently. The patient denies experiencing similar symptoms in the past. I ( justin Blanco MD ) reviewed pt's H/P with pt, pt is still have RLQ pain with nausea, no vomiting, I also reviwered labs and CT Scan, Allergies Allergy/AdvReac Type Severity Reaction Status Date / Time No Known Allergies Allergy Verified 12/18/18 06:34 Home Medications Home Medications Medication Instructions Recorded Confirmed Type escitalopram oxalate 20 mg PO HS 12/18/18 12/18/18 History warfarin 9 mg PO HS 12/18/18 12/18/18 History Patient History Medical History Acute abdominal pain Abnormal CT of the abdomen Acute appendicitis (Acute) Anxiety disorder Clotting disorder H/O wisdom tooth extraction History of pulmonary embolus (PE) 2013 - hospitalized [facility] Ulnar nerve entrapment LEFT - s/p decompression Family History Father Pulmonary embolism Crohn's disease Sister Pulmonary embolism Crohn's disease Social History Preferred Language: Kiswahili marital status: Current Living Situation: Family current occupational status: employed 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[employer]) other: 5yo son Feels Safe at Home: Yes Smoking Status: Current every day smoker Tobacco Type: smokeless tobacco ; Cigarettes Per Day: 2 cans chewing tobacco/week ; Do You Dip or Chew Tobacco: Yes ; Hx Alcohol Use: Yes Alcohol type: hard liquor Alcohol Intake Frequency: Holidays/Special Occasions Hx Substance Use: No Review of Systems Review of Systems: All systems reviewed & are unremarkable except as noted in HPI & below Physical Exam Constitutional: WD/WN, vitals as above well developed and well nourished ENMT: external ear and nose normal, oropharynx normal Neck: trachea midline, no thyromegaly Respiratory: normal respiratory effort, lungs clear to auscultation normal respiratory effort Cardiovascular: RRR, no murmur, no edema Rate/Rhythm: regular rate and regular rhythm Heart Sounds: normal S1 and normal S2 Gastrointestinal (Abdomen): Percussion/Palpation: + abdomen tender and abdomen soft soft, tenderness ar RL, no rebound pain, BS +, no rigid, Musculoskeletal: no cyanosis or clubbing, extremities motor strength 5/5 Skin: no rashes, warm and dry Neurologic: patellar DTR's 2+ bilat, sensation intact Psychiatric: A+Ox3, euthymic affect Orientation: alert and oriented x 3 Results & Data Vital Signs (Past 12 Hours) Vital Signs Temp Pulse Resp BP Pulse Ox 12/18/18 10:30 74 14 121/77 98 12/18/18 10:00 73 18 123/73 99 12/18/18 09:30 68 13 118/70 98 12/18/18 09:00 77 15 116/71 97 12/18/18 08:30 75 12 115/84 100 12/18/18 08:08 80 15 131/76 99 12/18/18 06:26 36.7 C 71 18 130/79 96 Laboratory Results Abnormal lab results 11/06/19 11/06/19 Range/Units 06:31 06:31 PT 18.5 H (9.0-12.0) Seconds INR 1.9 H (0.9-1.1) Globulin 4.2 H (2.5-4.0) gm/dl Diagnostic Findings CT abd pelvis IV con only CLINICAL HISTORY: RLQ pain nausea COMPARISON STUDY: None. TECHNIQUE: The patient was scanned in a dynamic helical fashion during intravenous administration of 94 cc of Optiray 320. A dose lowering technique was utilized adhering to the principles of ALARA. CT DOSE: 798.26 mGy.cm FINDINGS: Lower chest: There are mild dependent atelectatic changes. Liver: The contrast-enhanced liver is normal in size, contour, and attenuation. There is no intrahepatic biliary ductal dilatation. The hepatic veins and portal veins are patent. Gallbladder: Unremarkable. Spleen: Normal in size and attenuation. Pancreas: Unremarkable. Adrenal glands: Unremarkable. Kidneys: There is symmetric renal cortical enhancement. The kidneys are normal in size without hydronephrosis. Bowel: There are no transition zones to indicate bowel obstruction. There is no evidence of acute diverticulitis. There is mild appendiceal thickening 8 mm, but no evidence of significant periappendiceal inflammatory change. Careful clinical follow-up will be necessary as an early acute appendicitis cannot be excluded. Peritoneum: There is no intraperitoneal free air or abdominal ascites. There are small fat-containing umbilical hernia. Vasculature: The abdominal aorta is normal in course and caliber. Adenopathy: There are mildly prominent ileocolic lymph nodes, likely reactive. Pelvic viscera: The bladder, and pelvic viscera are unremarkable. Skeletal structures: No destructive osseous lesions are seen. IMPRESSION: 1. No evidence of bowel obstruction. No evidence of free air 2. Mildly prominent ileocolic lymph nodes likely reactive 3. Mild appendiceal thickening (8 mm), without evidence of significant periappendiceal inflammatory change. Given the history of right lower quadrant abdominal pain, close follow-up will be necessary as an early acute appendicitis cannot be excluded
[2018-12-18] MEDS ORDERED: ONDANSETRON INJ 2 MG/ML 2 ML VIAL IV PRN ×2 (11:51→15:58)
[2018-12-18] MEDS ORDERED: MoRPHine SULFATE 2 MG/ML CARP IV PRN (12:06)
[2018-12-18] MEDS: D5NSS + 20MEQ KCL 20 MEQ/1,000 ML BAG IV SCH ×2 (13:37→23:54)
[2018-12-18 14:35] LABS: INR 1.6 (0.9-1.1); Prothrombin Time 15.7 Seconds (9.0-12.0)
[2018-12-18] MEDS ORDERED: PROPOFOL IV EMULSION 10 MG/ML 20 ML VIAL IV ONE (14:51)
[2018-12-18] MEDS ORDERED: ONDANSETRON INJ 2 MG/ML 2 ML VIAL ONE (14:51)
[2018-12-18] MEDS ORDERED: LIDOCAINE HCL 2% 2 ML VIAL/AMP(20MG/ML) INFIL ONE (14:51)
[2018-12-18] MEDS ORDERED: fentaNYL citrate 100 MCG/2 ML VIAL ONE (14:51)
[2018-12-18] MEDS ORDERED: DEXAMETHASONE SOD INJ 4 MG/ML VIAL ONE (14:51)
[2018-12-18] MEDS ORDERED: MIDAZOLAM HCL 1 MG/ML 2ML VIAL ONE (14:51)
[2018-12-18] MEDS ORDERED: GLYCOPYRROLATE 0.2 MG/ML VIAL ONE (14:51)
[2018-12-18] MEDS ORDERED: NEOSTIGMINE METHYLSULFATE 5 MG/5 ML SYR ONE (14:51)
[2018-12-18] MEDS ORDERED: BUPIVACAINE 0.5 % 5 MG/1 ML MPF 30ML VIAL ONE (14:58)
[2018-12-18] MEDS ORDERED: BACITRACIN OINT 15 GM TUBE ONE (14:58)
[2018-12-18] MEDS ORDERED: LIDOCAINE HCL 1% 20 ML VIAL ONE (14:58)
[2018-12-18] MEDS ORDERED: cefOXitin 2,000 MG in DEXTROSE 5% 50 ML IV SCH (15:00)
--- NOTE | 2018-12-18 15:18 | History & Physical Bridge Note ---
Date of Service December 18, 2018 History & Physical Bridge Note I have examined the patient, reviewed the History & Physical and in the interval since the performance of the History & Physical I have noted the following changes of clinical significance: no changes noted
--- NOTE | 2018-12-18 15:48 | Anesthesiology Consultation ---
Date of Service December 18, 2018 Assessment & Plan Chart Review Chart Review: Acceptable Risk for Surgery and Patient NOT seen in Pre Admission Testing Consults Requested none ASA ASA2 Proposed Anesthesia Anesthesia Type: General Risk / Benefits Reviewed With: PT / POA / Parent / Guardian, Accepts Plan and Informed Consent Obtained History Surgery Operation Date: 12/18/18 11:00 Proposed Procedures p Laparoscopic Appendectomy - Bertha Blanco MD Height/Weight Height: 5 ft 9 in Weight: 104.2 kg Allergies Allergy/AdvReac Type Severity Reaction Status Date / Time No Known Allergies Allergy Verified 12/18/18 06:34 Medications Home Medications Medication Instructions Recorded Confirmed Last Taken escitalopram oxalate 20 mg PO HS 12/18/18 12/18/18 12/17/18 warfarin 9 mg PO HS 12/18/18 12/18/18 12/17/18 Active Medications Generic Name Dose Route Start Last Admin Trade Name Freq PRN Reason Stop Dose Admin Potassium Chloride/Dextrose/Sod Cl 20 meq in 1,000 mls @ 150 mls/hr 12/18/18 12:30 12/18/18 15:08 D5nss + 20meq Kcl IV 01/17/19 12:29 0 mls/hr .[id number] NAY Infusion NPO Date Last Intake of Fluids: 12/18/18 Time Last Intake of Fluids: 12:00 Date Last Intake of Solids: 12/17/18 Time Last Intake of Solids: 12:00 Past Medical History Medical History Acute abdominal pain Abnormal CT of the abdomen Acute appendicitis (Acute) Anxiety disorder Clotting disorder History of pulmonary embolus (PE) 2013 - hospitalized [facility] 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 Past Family History Family History Father Pulmonary embolism Crohn's disease Sister Pulmonary embolism Crohn's disease Past Surgical History Surgical History H/O wisdom tooth extraction History of decompression of ulnar nerve Past Anesthesia History No Hx of Anesthesia Complications History of PONV No Hx of PONV and No Hx of Motion Sickness Social History Smoking Status: Unknown if ever smoked tobacco type: smokeless tobacco Smoking cigarettes per day: 2 cans chewing tobacco/week Do You Dip or Chew Tobacco: Yes (2 cans/week) Hx Alcohol Use: Yes Alcohol type: hard liquor alcohol intake frequency: holidays/special occasions only Hx Substance Use: No Review of Systems Patient denies active symptoms of GERD. Physical Exam Vital Signs Last Vital Signs Temp 36.6 C 12/18/18 11:51 Pulse 65 12/18/18 11:30 Resp 16 12/18/18 11:51 BP 127/75 12/18/18 11:51 Pulse Ox 99 12/18/18 11:51 Constitutional + obese ENMT Mouth: no TMJ abnormality and oral opening not small Thyromental Distance: < 3.5 Finger Breadths Mallampati Class: III Neck normal visual inspection, + short neck, + thick neck and + facial hair; neck extension not limited Respiratory normal respiratory effort Auscultation: lungs clear to auscultation bilaterally Cardiovascular Rate/Rhythm: regular rate and regular rhythm Heart Sounds: no murmur Neurologic moves all extremities Psychiatric Orientation: alert and oriented x 3 Testing Laboratory Results 12/18/18 06:31 12/18/18 06:31 PT 15.7 Seconds (9.0-12.0) H 12/18/18 14:15 INR 1.6 (0.9-1.1) H 12/18/18 14:15
[2018-12-18] MEDS ORDERED: ePHEDrine sulfate 50 MG/ML AMP IV PRN (15:58)
[2018-12-18] MEDS ORDERED: ATROPINE SULFATE 0.1 MG/ML 10ML SYR IV PRN (15:58)
[2018-12-18] MEDS ORDERED: HYDROmorphone INJ 2 MG/ML SYR/VIAL IV PRN (15:58)
--- NOTE | 2018-12-18 16:57 | Post Operative Brief Note ---
Immediate Post Op Note v1 Date of Surgery December 18, 2018 Pre & Post Diagnosis Operation Date: 12/18/18 11:00 Pre-Op Diagnosis: acute appendicitis Post-Op Diagnosis: acute appendicitis I identified the patient and participated in the time-out.: Yes Procedure Operation Date: 12/18/18 11:00 Actual Procedures p Laparoscopic Appendectomy(Not Applicable) - Bertha Blanco MD Surgeon Bertha Blanco MD Benefits Coordinator surgical corsetier Estimated Blood Loss 5 Findings Consistent with Post-Op Diagnosis Fluids 1100ml Specimens appendix Anesthesia Type General Complications none Disposition Accompanied Patient To Recovery: Yes Disposition: Recovery Room Overlapping Procedure I was immediately available: during the entire case.
[2018-12-18] MEDS: fentaNYL citrate 100 MCG/2 ML VIAL IV PRN ×2 (17:21→17:26)
--- NOTE | 2018-12-18 17:44 | Anesthesiology Progress Note ---
Date of Service December 18, 2018 Anesthesia Post Procedure Vital Signs Vital Signs: Temp Pulse Pulse Resp BP BP Pulse Ox 12/18/18 17:40 36.4 C L 71 16 121/69 97 12/18/18 17:30 82 16 122/83 95 12/18/18 17:20 88 16 132/81 100 12/18/18 17:13 36.3 C L 93 H 16 135/78 99 12/18/18 11:51 36.6 C 16 127/75 99 12/18/18 11:30 65 18 111/71 96 12/18/18 11:15 67 13 138/65 97 12/18/18 11:02 83 12 112/59 L 97 12/18/18 11:00 81 15 111/58 L 97 12/18/18 10:30 74 14 121/77 98 12/18/18 10:00 73 18 123/73 99 12/18/18 09:30 68 13 118/70 98 12/18/18 09:00 77 15 116/71 97 12/18/18 08:30 75 12 115/84 100 12/18/18 08:08 80 15 131/76 99 12/18/18 06:26 36.7 C 71 18 130/79 96 Pain Intensity Abdomen: Pain Intensity: 5 Transfer of Care Handoff Completed per policy Notes Mental Status: alert / awake / arousable and participated in evaluation Patient Amnestic to Procedure: Yes Nausea / Vomiting: adequately controlled Pain: adequately controlled Airway Patency, RR, SpO2: stable & adequate BP & HR: stable & adequate Hydration State: stable & adequate Anesthetic Complications: no major complications apparent and Pt Satisfied with anesthetic care
[2018-12-18] MEDS ORDERED: OXYCODONE/ACETAMINOPHEN 5mg/325mg TAB PO PRN (18:06)
--- NOTE | 2018-12-18 20:55 | Operative Report ---
DATE OF OPERATION: 12/18/2018 PREOPERATIVE DIAGNOSIS: Acute appendicitis. POSTOPERATIVE DIAGNOSIS: Acute appendicitis. OPERATION: Laparoscopic appendectomy. SURGEON: Bertha Blanco MD ANESTHESIA: General. ESTIMATED BLOOD LOSS: About 5 mL. FINDINGS: Acute appendicitis. COMPLICATIONS: None. INDICATIONS FOR THE PROCEDURE: This is a 33-year-old gentleman who presented to Emergency Department with right lower quadrant pain. The patient had a CT scan diagnosis of acute appendicitis. I recommended to do the laparoscopic appendectomy, possible open. I did talk to the patient about the benefits and risks and alternate procedure. I indicated the risks may include but not limited such as bleeding, infection and abscess. The patient understands. He signed informed consent and I answered all questions. DETAILS OF PROCEDURE: We brought the patient to the Operating Room and put the patient in the supine position. The patient received sequential compression devices on bilateral legs to prevent deep venous thrombosis. Also, the patient received 2 g cefoxitin I.V. for prophylactic antibiotic. The patient received general anesthesia without difficulties. The abdomen was appropriately prepped in routine sterile fashion. After timeout, I injected the local anesthesia by using 1% lidocaine mixed with 0.5% Marcaine just above umbilicus then I made a small incision just above the umbilicus, opened fascia and opened peritoneum under direct vision, put a Lakisha trocar in, connected to CO2 to create pneumoperitoneum. Flow rate at 6 liters per minute. Pressure not more than 14 mmHg. Once we got a nice pneumoperitoneum, we put a camera in and looked at the abdomen which shows normal finding on the small bowel and large bowel; however, the appendix was enlarged with inflammation and confirmed diagnosis of acute appendicitis. Then, we put another two 5 mm trocars on the left lower quadrant where we mobilized the appendix, we took down the appendix by the harmonic, rechecked, no active bleeding. Then, we used 45 mm Endo-SINTIA staple for transection on the base of the appendix, rechecked the staple line intact and there was one staple lines bleeding. I used 5 mm metal clip to clip the staple line. Then just bleeding stopped and no active bleeding. Then, we removed the appendix through the catch bag, then we reinserted Lakisha trocar and connected to CO2 to create pneumoperitoneum, again looked around abdomen, no active bleeding, no leak from the staple line. Then, we removed all trocar under direct vision. No active bleeding from the trocar site. Pneumoperitoneum was released, then we closed the umbilical incision and fascial layer by using #1 Vicryl [id number] x2, closed subcutaneous layer by using 2-0 Vicryl interruptedly, closed skin by using 4-0 Vicryl continuous running, closed another two 5 mm trocar site skin only by using 4-0 Vicryl then we put a dressing on. The patient tolerated the procedure well. All instrument, needle and sponge count were correct x2 at the end of case. The patient was transferred to Recovery Room in a stable condition. The specimen sent to pathology. After procedure, I did talk to the patient and family member about the Operating Room finding and procedure we did, they understand. I attest to the content of the Intraoperative Record and any orders documented therein. Any exception s are noted below.
[2018-12-18] MEDS ORDERED: ESCITALOPRAM OXALATE 20 MG TAB PO SCH (21:00)
[2018-12-18] MEDS ORDERED: WARFARIN SOD 3 MG TAB PO SCH (21:00)
[2018-12-19 04:25] LABS: Eosinophils # (auto) 0.01 K/uL (0-0.5); Eosinophils % (auto) 0.1 %; Hematocrit (blood only) 40.4 % (42-52); Hemoglobin 13.5 g/dL (14.0-18.0); Immature Granulocytes # (auto) 0.01 K/uL (0.00-0.02); Immature Granulocytes % (auto) 0.1 %; Lymphocytes # (auto) 1.57 K/uL (1.2-3.4); Lymphocytes % (auto) 16.6 %; Mean Corpuscular Hemoglobin 28.8 pg (25-34); Mean Corpuscular Hgb Conc 33.4 g/dL (32-36); Mean Corpuscular Volume 86.1 fL (80-100); Mean Platelet Volume 9.4 fL (7.4-10.4); Monocytes # (auto) 0.32 K/uL (0.11-0.59); Monocytes % (auto) 3.4 %; Neutrophils # (auto) 7.55 K/uL (1.4-6.5); Neutrophils % (auto) 79.8 %; Platelet Count 219 K/uL (130-400); RDW Coefficient of Variation 12.6 % (11.5-14.5); RDW Standard Deviation 39.5 fL (36.4-46.3); Red Blood Count 4.69 M/uL (4.7-6.1); White Blood Count 9.46 K/uL (4.8-10.8)
[2018-12-19 04:41] LABS: INR 1.2 (0.9-1.1); Prothrombin Time 12.3 Seconds (9.0-12.0)
[2018-12-19 04:47] LABS: Calcium 8.5 mg/dl (8.5-10.1); Creatinine Clr Calc Pharmacy 137.1 ml/min; Est GFR (African American) 127.1; Est GFR (Non-African American) 109.7; Potassium 4.3 mmol/L (3.5-5.1)
[2018-12-19] MEDS: D5NSS + 20MEQ KCL 20 MEQ/1,000 ML BAG IV SCH (07:09)
[2018-12-19 08:32] VITALS: BP 114/78; PULSE 63; TEMP 98.1; O2SAT 97
--- NOTE | 2018-12-19 08:42 | Discharge Summary ---
ADMITTING DIAGNOSIS: Acute appendicitis. DISCHARGE DIAGNOSIS: Acute appendicitis. OPERATION: Laparoscopic appendectomy. SURGEON: Bertha Blanco MD. DETAILS OF DISCHARGE SUMMARY: This is a 33-year-old gentleman who presented to ED with 1 day history of acute abdominal pain. The patient had a CT scan diagnosis of acute appendicitis. We took the patient to the OR. We did a laparoscopic appendectomy on 12/18/2018. Patient tolerated the procedure well and patient will stay in the hospital overnight and the patient is doing fine. He tolerated clear diet and no significant abdominal pain. PHYSICAL EXAMINATION: VITAL SIGNS: The patient's temperature is 36.6, the heart rate is 85, respiratory rate 20, blood pressure is 119/69, O2 saturation 96% on room air. GENERAL: The patient is alert, awake, oriented x3. HEENT: With normal limitation. NEUROLOGIC: Intact. NECK: No JVD. CHEST: Bilateral lung sounds clear. HEART: Normal S1, S2. No murmurs. ABDOMEN: Soft, nondistended. Some incision pain. All the incisions intact. No redness, no drainage. Bowel sounds positive. EXTREMITIES: No edema. PLAN: The patient wanted to go home today. We gave the patient postop care instruction. The patient understands. We will discharge the patient to home today. I will follow up the patient in 1-2 weeks. The patient understands.
[2018-12-19] MEDS ORDERED: ENOXAPARIN INJ 40 MG/0.4 ML SYR SQ STA (09:34)
--- NOTE | 2018-12-19 10:03 | Hospitalist Progress Note ---
Date of Service December 19, 2018 Assessment & Plan (1) Acute appendicitis: POD #1 s/p lap appy by Dr Blanco. Dr Blanco has already seen the patient at bedside this am and has given OK for d/c home. D/C instructions given by Dr Blanco for when he should follow-up, lifting restrictions, etc. Patient overall feeling well, eating well, ambulating, passing flatus. To see Dr Blanco in 1-2 weeks post-discharge for post-op check. (2) History of pulmonary embolus (PE): 2013 - unprovoked. Hospitalized at [facility]. Coumadin initiated at that time, and patient given either a diagnosis of antiphospholipid antibody syndrome (vs antithrombin III deficiency). 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 Was given vitamin K 10mg IV x 1 yesterday to reverse his coumadin. INR this am is 1.2. He was restarted on coumadin 9mg last pm post-appendectomy. Plan - Will need lovenox bridge post-operatively to prevent perioperative VTE. Start 40mg SC daily with first dose now prior to discharge. He should remain on lovenox 40mg SC daily while awaiting for coumadin to attain goal range of 2-3. In terms of coumadin dosing I recommended the following and placed these recommendations in d/c instructions -- * 15mg po x 1 on 12/19 * 15mg po x 1 on 12/20 * then resume normal 9mg daily on 12/21 and thereafter * repeat INR on 12/20 recommended; he has these done at [facility] and he is managed by his PCP I did talk to him about the availability of the coumadin clinic at [facility] if he ever wanted to refer himself there for INR checks. Otherwise he will cont his management with his PCP. (3) Clotting disorder: See discussion above in "h/o PE". (4) Anxiety disorder: Cont SSRI. (5) DVT prophylaxis: start SC lovenox today. see "h/o PE" for detailed information on coumadin/lovenox. ok to d/c home. counseled his as well who was at bedside. total time today spent on above activities including coordinating care, checking with social work about cost of lovenox, giving counseling, preparing d/c instructions -- 35 minutes Subjective patient had good night overnight. minimal incisional pain. eating well; no nausea/emesis. passing flatus. no dyspnea or chest pain. has not noticed any leg swelling to suggest DVT. no leg pains. at bedside. Review of Systems Constitutional: no fever and no chills Respiratory: no cough and no dyspnea Cardiovascular: no chest pain, no dyspnea on exertion, no orthopnea, no paroxysmal nocturnal dyspnea and no edema Gastrointestinal: as per Subjective / HPI; no nausea and no vomiting Musculoskeletal: no swelling Physical Exam Constitutional: well developed, well nourished and + obese; no acute distress ENMT: external ear and nose normal, oropharynx normal Respiratory: normal respiratory effort, lungs clear to auscultation Cardiovascular: Rate/Rhythm: regular rate and regular rhythm Heart Sounds: normal S1 and normal S2; no murmur Vessels: posterior tibial pulses present and dorsalis pedis pulses present; no JVD Extremities: no edema Gastrointestinal (Abdomen): Inspection/Auscultation: normal bowel sounds; abdomen not distended Percussion/Palpation: abdomen soft; abdomen nontender abdominal wall incisions covered w/ dressings; clean/dry Skin: no rashes, warm and dry Psychiatric: A+Ox3, euthymic affect Results & Data Vital Signs (Past 12 Hours) Vital Signs Temp Pulse Pulse Pulse Resp BP BP 12/19/18 08:30 36.7 C 63 16 114/78 12/19/18 08:26 36.6 C 70 85 20 119/69 12/19/18 06:07 36.6 C 85 20 119/69 12/18/18 23:41 36.4 C L 73 20 114/69 Pulse Ox 12/19/18 08:30 97 12/19/18 08:26 96 12/19/18 06:07 96 12/18/18 23:41 94 Laboratory Results INR 1.2 CBC wnl PG Care Time/CCT Total # of Minutes Spent Total Time Spent with Patient: Total time spent is greater than 50% in coordination of care (as documented) at patient's floor/unit and/or counseling patient: (1) Anxiety disorder Anxiety disorder type: generalized anxiety disorder Qualified Code(s): F41.1 - Generalized anxiety disorder (2) Acute appendicitis Acute appendicitis type: unspecified acute appendicitis type Qualified Code(s): K35.80 - Unspecified acute appendicitis
== END 2018-12-19 10:22 | disposition home or self-care (01) ==
LOC: ED 06:20 → 3N 06:20